=== PATIENT | female | born 1970 | race Caucasian/White ===

== ENCOUNTER 2019-03-09 11:46 | Observation (INO) ==
[2019-03-09] MEDS ORDERED: ACETAMINOPHEN 325 MG TABLET PO PRN (13:19)
[2019-03-09] MEDS ORDERED: ONDANSETRON 4 MG/2 ML VIAL IV PRN (13:19)
[2019-03-09] MEDS ORDERED: GLUCAGON 1 MG VIAL IM PRN (13:21)
[2019-03-09] MEDS ORDERED: DEXTROSE 10% 250 ML BAG IV PRN (13:21)
[2019-03-09] MEDS ORDERED: SODIUM CHLORIDE 0.9% 1,000 ML IV ONE (13:22)
[2019-03-09] MEDS ORDERED: hydrALAZINE 20 MG/1 ML VIAL IV PRN (13:23)
[2019-03-09 13:59] LABS: Basophils % 0.1 % (0.0-0.8); Eosinophils # 0.7 10*3/uL (0.0-0.87); Eosinophils % 7.1 % (0.00-10.9); Hematocrit 38.1 VOL% (35.7-47.0); Hemoglobin 12.3 GM/DL (12.0-16.0); Immature Granulocytes % 0.3 %; Immature Granulocytes Absolute 0.03 #; Lymphocytes # 2.1 10*3/uL (1.4-4.0); Lymphocytes % 22.4 % (21.3-54.2); Mean Corpuscular HGB Conc 32.3 GM/DL (32-36); Mean Corpuscular Volume 92.9 FL (87-102); Mean Platelet Volume 10.7 FL (9.6-12.0); Monocytes % 5.5 % (1.7-12.7); Neutrophils % 64.6 % (38.7-73.9); Platelet Count 289 T/CUMM (130-400); Red Cell Distribution Width 12.9 % (9.3-17.3); White Blood Count 9.2 T/CUMM (4-12)
[2019-03-09 14:28] LABS: Albumin 3.3 G/DL (3.4-5.0); Bilirubin,Total 0.5 MG/DL (0.2-1.0); Calcium 8.9 MG/DL (8.5-10.1); Osmolality,Calculated 281.4 MOS/KG (273-304); Total Protein 7.4 G/DL (6.4-8.3)
[2019-03-09] MEDS: FAMOTIDINE 20 MG/2 ML VIAL IV SCH ×2 (14:31→21:24)
[2019-03-09] MEDS: PROMETHAZINE 25 MG/1 ML VIAL IM PRN (14:31)
[2019-03-09 16:38] LABS: Apearance,Urine CLEAR (Clear); Bacteria,Urine Moderate /HPF (Few); Bilirubin,Urine Negative (Negative); Blood, Urine Negative (Negative); Glucose,Urine (UA) Negative (Negative); Ketones,Urine 20 mg/dL (Negative); Mucus,Urine Occasional /LPF (Occasional); Nitrite,Urine Positive (Negative); Protein,Urine Negative; RBC,Urine 2 /HPF (0-4); Squamous Epithelial Cell,Urine Occasional /HPF (0-10); Urine Color Yellow (Yellow); Urine Specific Gravity 1.014 (1.001-1.035); Urine Urobilinogen < 2.0 EU/DL (0.2-1.0); WBC,Urine 19 /HPF (0-6)
[2019-03-09] MEDS: INSULIN LISPRO 100 UNIT/ML SUBCUT SCH (17:47)
[2019-03-09] MEDS: SODIUM CHLORIDE 0.9% 1,000 ML IV SCH (18:40)
[2019-03-09] MEDS: cefTRIAXone 1,000 MG in SYRINGE 1 EACH IV SCH (21:19)
[2019-03-09] MEDS: DOCUSATE SODIUM 100 MG CAPSULE PO SCH (21:24)
[2019-03-10] MEDS: INSULIN LISPRO 100 UNIT/ML SUBCUT SCH ×4 (01:58→18:50)
[2019-03-10] MEDS: SODIUM CHLORIDE 0.9% 1,000 ML IV SCH ×3 (03:26→17:32)
[2019-03-10] MEDS: FLUoxetine 20 MG CAPSULE PO SCH (08:42)
[2019-03-10] MEDS: DOCUSATE SODIUM 100 MG CAPSULE PO SCH ×2 (08:43→22:38)
[2019-03-10] MEDS: LISINOPRIL 2.5 MG TABLET PO SCH (08:43)
[2019-03-10] MEDS: FAMOTIDINE 20 MG/2 ML VIAL IV SCH ×2 (08:44→20:40)
[2019-03-10] MEDS: PROMETHAZINE 25 MG/1 ML VIAL IM PRN ×2 (10:23→20:54)
[2019-03-10] MEDS ORDERED: LOPERAMIDE 2 MG CAPSULE PO PRN (17:03)
[2019-03-10] MEDS: cefTRIAXone 1,000 MG in SYRINGE 1 EACH IV SCH (20:40)
[2019-03-11] MEDS: SODIUM CHLORIDE 0.9% 1,000 ML IV SCH ×2 (02:12→09:02)
[2019-03-11] MEDS: INSULIN LISPRO 100 UNIT/ML SUBCUT SCH ×2 (02:12→09:20)
[2019-03-11] MEDS: FLUoxetine 20 MG CAPSULE PO SCH (09:03)
[2019-03-11] MEDS: DOCUSATE SODIUM 100 MG CAPSULE PO SCH (09:03)
[2019-03-11] MEDS: LISINOPRIL 2.5 MG TABLET PO SCH (09:03)
[2019-03-11] MEDS: FAMOTIDINE 20 MG/2 ML VIAL IV SCH (09:03)
[2019-03-11] MEDS: PROMETHAZINE 25 MG/1 ML VIAL IM PRN (09:50)
[2019-03-11 12:03] VITALS: BP 124/79
[2019-03-11] MEDS ORDERED: NITROFURANTOIN MACRO/MONO 100 MG CAPSULE PO SCH (21:00)
== END 2019-03-11 14:51 | disposition home or self-care (01) ==
LOC: N.2E
PROVIDERS: ADMIT Family Medicine; ATTEND Family Medicine